=== PATIENT | male | born 1935 | race Caucasian/White ===

== ENCOUNTER 2017-07-03 07:13 | Emergency (ER) | payer MEDICARE, BC ==
[2017-07-03 07:36] VITALS: BP 167/88
[2017-07-03] MEDS ORDERED: Acetaminophen 325 MG Tab PO ONE (08:22)
[2017-07-03] MEDS ORDERED: Ketorolac 30 MG/ML SDV IM ONE (08:22)
--- NOTE | 2017-07-03 08:26 | EDM.PDOC ---
ED HPI GENERAL MEDICAL PROBLEM - General Chief Complaint: Back Pain or Injury Stated Complaint: BACK PAIN Time Seen by Provider: 07/03/17 07:41 Source of Information: Reports: Patient History Limitations: Reports: No Limitations - History of Present Illness INITIAL COMMENTS - FREE TEXT/NARRATIVE: The patient is a 81-year-old male with a chief complaint of back pain. The patient states he had a back injury several years ago and had some sort of fracture. He had a procedure done by a specialist in [facility] who injected cement , sounds like kyphoplasty. Since then the patient has had on and off back pain. He comes in today because his back pain has been quite a bit worse over the past few weeks. No new injury. No new fall. The pain is located in the low back , midline, sharp, worse with sitting and movement. He does have pain radiating down both legs. He has chronic numbness in his feet and lower legs, states there is no change in this. No new weakness. No urinary retention or other urinary symptoms. No fever or recent illness. Patient was seen at an outside clinic in [place] less than a week ago, he states x-rays showed "bad arthritis" but no additional abnormality. He was prescribed cyclobenzaprine but has not taken this. He is very hesitant to take pain medications as they tend to make him hallucinate and cause excessive confusion and drowsiness. He states he did not tolerate any of multiple narcotics that were tried after his back surgery. He has taken an occasional ibuprofen but this has not provided significant relief. Last night the pain was severe enough that he couldn't sleep. He finally tried a shot of whiskey and this helped him get some rest. Lower Back Pain Score (Numeric/FACES): 6 - Related Data Allergies Allergy/AdvReac Type Severity Reaction Status Date / Time acetaminophen [From Percocet] Allergy Confusion Verified 07/03/17 07:36 oxycodone [From Percocet] Allergy Confusion Verified 07/03/17 07:36 Home Meds: Home Meds Atenolol [Atenolol] 50 mg PO BID 06/22/16 [History] Hydrochlorothiazide [Hydrochlorothiazide] 25 mg PO DAILY 06/22/16 [History] Irbesartan 300 mg PO DAILY 06/22/16 [History] Levalbuterol Tartrate [Xopenex HFA] 1 puff INH ASDIRECTED PRN 06/22/16 [History] Rosuvastatin Calcium [Crestor] 10 mg PO DAILY 06/22/16 [History] Past Medical History Cardiovascular History: Reports: High Cholesterol, Hypertension Respiratory History: Reports: Asthma Musculoskeletal History: Reports: Back Pain, Chronic Social & Family History - Family History Family Medical History: Noncontributory - Tobacco Use Smoking Status *Q: Never Smoker Second Hand Smoke Exposure: No - Recreational Drug Use Recreational Drug Use: No ED ROS GENERAL - Review of Systems Review Of Systems: See Below Constitutional: Denies: Fever HEENT: Reports: Rhinitis Respiratory: Denies: Shortness of Breath Cardiovascular: Denies: Chest Pain Endocrine: Reports: No Symptoms GI/Abdominal: Denies: Abdominal Pain : Denies: Dysuria, Hematuria, Incontinence, Urinary Retention Musculoskeletal: Reports: Back Pain Skin: Reports: No Symptoms Neurological: Reports: Numbness, Paresthesia. Denies: Weakness ED EXAM,LOWER BACK PAIN/INJURY - Physical Exam Exam: See Below Exam Limited By: No Limitations General Appearance: Alert, WD/WN, No Apparent Distress Eye Exam: Bilateral Eye: Normal Inspection, PERRL Ears: Normal External Exam Nose: Other (mild erythema/irritation of bilat nasal mucosa with evidence of recent bleeding) Throat/Mouth: Normal Oropharynx, Normal Voice Head: Atraumatic, Normocephalic Neck: Normal Inspection, Supple, Non-Tender, Full Range of Motion Respiratory/Chest: No Respiratory Distress, Lungs Clear, Normal Breath Sounds, No Accessory Muscle Use Cardiovascular: Normal Peripheral Pulses, Regular Rate, Rhythm, No Edema, No Murmur GI/Abdominal: Soft, Non-Tender, No Distention Back Exam: Normal Inspection, Paraspinal Tenderness (low lumbar raea), Vertebral Tenderness (low lumbar area, no step-offs/deformities, skin normal, no masses/fluctuance). No: CVA Tenderness (L), CVA Tenderness (R) Extremities: Normal Inspection, No Pedal Edema Neurological: Alert, Normal Mood/Affect, Normal Dorsiflexion, Normal Plantar Flexion, Oriented x 3 Psychiatric: Normal Affect, Normal Mood Skin Exam: Warm, Dry, Intact, Normal Color, No Rash Course - Vital Signs Last Recorded V/S: Last Vital Signs Temp 36.9 C 07/03/17 07:31 Pulse 88 11/26/17 07:31 Resp 18 07/03/17 07:31 BP 167/88 H 07/03/17 07:31 Pulse Ox 100 07/03/17 07:31 - Orders/Labs/Meds Meds: Medications Discontinued Medications Generic Name Dose Route Start Last Admin Trade Name Sophia PRN Reason Stop Dose Admin Acetaminophen 650 mg 07/03/17 08:22 07/03/17 08:30 Tylenol PO 07/03/17 08:23 650 mg NOW ONE Administration Ketorolac Tromethamine 30 mg 07/03/17 08:22 07/03/17 08:30 Toradol IM 07/03/17 08:23 30 mg ONETIME ONE Administration - Re-Assessments/Exams Free Text/Narrative Re-Assessment/Exam: 07/03/17 08:50 Patient had x-rays at outside clinic less than a week ago. He was told they showed "a lot of arthritis" but nothing else. He states results were faxed to his PCP. Given no new trauma, no indication for further imaging today. Other than longstanding lower extremity paresthesias, patient has no neurological deficits. His primary concern is pain control. He is very reluctant to take medications due to history of hallucinations/severe drowsiness with any narcotics - he tried multiple medications after his back surgery years ago and tolerated none of them. He was prescribed cyclobenzaprine at outside clinic but hasn't yet tried it due to concerns about possible side effects. He's just been taking an occasional ibuprofen and resorted to a shot of whiskey during the night as he couldn't sleep due to pain. I suggested he alternate ibuprofen and acetaminophen, f/u with PCP this week for referral for possible MRI and physical therapy and further discussion of pain control. Departure - Departure Time of Disposition: 08:23 Disposition: Home, Self-Care 01 Clinical Impression: Low back pain Qualifiers: Chronicity: acute Back pain laterality: midline Sciatica presence: with sciatica Sciatica laterality: bilateral sciatica Qualified Code(s): M54.42 - Lumbago with sciatica, left side - Discharge Information Instructions: Back Pain, Adult, [id number] Referrals: Hemal Aquino MD [Primary Care Provider] - Forms: ED Department Discharge Additional Instructions: 1. Take ibuprofen (acetaminophen) + ibuprofen (motrin) or aleve as directed by the bottle instructions. OK to take both of these medications together - they work and are cleared by the body in different ways. 2. Try taking 1/2 tab of your prescribed cyclobenzaprine tonight to see if this helps your pain. 3. Follow up with Dr. Aquino as soon as possible. Discuss whether an MRI and physical therapy referrals may be helpful in further evaluating and treating your pain. 4. Apply a small amount of vaseline inside your nose twice daily to help prevent nose bleeds. 5. Return to the ED for any new concerning symptoms, such as severe pain, worsening weakness in your legs, fever, or other concerning symptoms.
== END 2017-07-03 08:40 | disposition home or self-care (01) ==
LOC: JD.ED 07:13
DX: M54.42 Lumbago with sciatica, left side (principal); E78.00 Pure hypercholesterolemia, unspecified; I10 Essential (primary) hypertension; Z88.8 Allergy status to other drugs, medicaments and biological substances
CPT/HCPCS: 96372; 99283; A9270; J1885

== ENCOUNTER 2017-07-20 13:44 | Emergency (ER) | payer MEDICARE, BC ==
--- NOTE | 2017-07-20 15:07 | EDM.PDOC ---
ED HPI GENERAL MEDICAL PROBLEM - General Chief Complaint: Cardiovascular Problem Stated Complaint: HIGH BLOOD PRESSURE Time Seen by Provider: 07/20/17 14:15 Source of Information: Reports: Patient History Limitations: Reports: No Limitations - History of Present Illness INITIAL COMMENTS - FREE TEXT/NARRATIVE: 82-year-old male presents with multiple concerns. He states that he was most concerned about his high blood pressure. He called his primary care physician and was told to come to the emergency department. States he's been taking his medications as prescribed with no recent changes. They include irbesartan 300 mg daily, atenolol 50 mg twice a day, and hydrochlorothiazide 25 mg daily. Patient has been feeling poorly recently and took his blood pressure over the last few days has had a couple of readings of systolic 220 or so. States that he 's had some minimal chest discomfort and feels minimally short of breath but that he didn't think anything of it. He has also had some intermittent lower extremity pain and swelling but states that this is also been minor and that he wasn't concerned about it. No headache or confusion or neurological complaints. He is more concerned about his low back pain, which has been very problematic for him recently. He seen multiple physicians for this. He is currently taking cyclobenzaprine and tramadol but is now out of the cyclobenzaprine. States he's had trouble sleeping and also has had some feelings of anxiety in the past couple of weeks and wonders if that is related to the medications. He did see a specialist in [facility] who is planning to refer him to a pain specialist. Meanwhile, no difficulty walking or lower extremity weakness, no urinary symptoms. lower back Pain Score (Numeric/FACES): 3 - Related Data Allergies Allergy/AdvReac Type Severity Reaction Status Date / Time acetaminophen [From Percocet] Allergy Confusion Verified 07/20/17 14:16 oxycodone [From Percocet] Allergy Confusion Verified 07/20/17 14:16 Home Meds: Home Meds Atenolol [Atenolol] 50 mg PO BID 06/22/16 [History] Hydrochlorothiazide [Hydrochlorothiazide] 25 mg PO DAILY 06/22/16 [History] Irbesartan 300 mg PO DAILY 06/22/16 [History] Levalbuterol Tartrate [Xopenex HFA] 1 puff INH ASDIRECTED PRN 06/22/16 [History] Rosuvastatin Calcium [Crestor] 10 mg PO DAILY 06/22/16 [History] Cinnamon Bark [Cinnamon] 500 mg PO DAILY 07/20/17 [History] Cyclobenzaprine [Flexeril] 10 mg PO BEDTIME 07/20/17 [History] Furosemide 20 mg PO DAILY #30 tablet 07/20/17 [Rx] Magnesium 200 mg PO DAILY 07/20/17 [History] amLODIPine [Norvasc] 5 mg PO DAILY #30 tablet 07/20/17 [Rx] traMADol HCl [Tramadol HCl] 50 mg PO Q6H PRN 07/20/17 [History] Past Medical History HEENT History: Reports: Impaired Vision Cardiovascular History: Reports: High Cholesterol, Hypertension Respiratory History: Reports: Asthma Other Respiratory History: takes xopenex inhalers very frequently Musculoskeletal History: Reports: Back Pain, Chronic Psychiatric History: Reports: Anxiety - Past Surgical History Musculoskeletal Surgical History: Reports: Other (See Below) Other Musculoskeletal Surgeries/Procedures:: currently being treated for compression fractures of the lower back Social & Family History - Family History Family Medical History: Noncontributory - Tobacco Use Smoking Status *Q: Former Smoker Used Tobacco, but Quit: No Second Hand Smoke Exposure: No - Caffeine Use Caffeine Use: Reports: Soda Other Caffeine Use: decaf coffee. states "lives on diet dew" - Recreational Drug Use Recreational Drug Use: No ED ROS GENERAL - Review of Systems Review Of Systems: See Below Constitutional: Reports: No Symptoms HEENT: Reports: No Symptoms Respiratory: Denies: Cough Cardiovascular: Reports: Dyspnea on Exertion Endocrine: Reports: No Symptoms GI/Abdominal: Denies: Abdominal Pain : Reports: No Symptoms Musculoskeletal: Reports: Back Pain Neurological: Denies: Headache Psychiatric: Reports: Anxiety ED EXAM, GENERAL - Physical Exam Exam: See Below Exam Limited By: No Limitations General Appearance: Alert, WD/WN, No Apparent Distress Eye Exam: Bilateral Eye: Normal Inspection Ears: Normal External Exam Nose: Normal Inspection Throat/Mouth: Normal Inspection, Normal Voice, No Airway Compromise Head: Atraumatic, Normocephalic Neck: Normal Inspection, Supple, Non-Tender, Full Range of Motion Respiratory/Chest: No Respiratory Distress, Lungs Clear, Normal Breath Sounds, Chest Non-Tender Cardiovascular: Other (Irregularly irregular, rate 55-65, trace bilateral lower extremity edema) GI/Abdominal: Soft, Non-Tender, No Distention. No: Rebound Neurological: Alert, Oriented, CN II-XII Intact, Normal Cognition, No Motor/ Sensory Deficits Psychiatric: Normal Affect, Normal Mood Skin Exam: Warm, Dry, Intact, Normal Color, No Rash Course - Vital Signs Last Recorded V/S: Last Vital Signs Temp 35.9 C 07/20/17 14:08 Pulse 62 07/20/17 16:45 Resp 18 07/20/17 16:45 BP 164/93 H 07/20/17 16:45 Pulse Ox 95 07/20/17 16:45 - Orders/Labs/Meds Orders: Active Orders 24 hr Category Date Time Status EKG 12 Lead [EKG Documentation Completion] [RC] STAT Care 07/20/17 15:05 Active EKG 12 Lead [EKG Documentation Completion] [RC] STAT Care 07/20/17 15:39 Active Labs: Laboratory Tests 07/20/17 07/20/17 07/20/17 Range/Units 15:23 15:23 15:23 WBC 6.50 (4.23-9.07) K/mm3 RBC 4.62 L (4.63-6.08) M/mm3 Hgb 15.2 (13.7-17.5) gm/L Hct 44.0 (40.1-51.0) % MCV 95.2 H (79.0-92.2) fl MCH 32.9 H (25.7-32.2) pg MCHC 34.5 (32.2-35.5) g/dl RDW Std Deviation 49.0 H (35.1-43.9) fL Plt Count 199 (163-337) K/mm3 MPV 8.6 L (9.4-12.3) fl Neut % (Auto) 64.2 (34.0-67.9) % Lymph % (Auto) 24.6 (21.8-53.1) % Starr % (Auto) 10.3 (5.3-12.2) % Eos % (Auto) 0.5 L (0.8-7.0) Baso % (Auto) 0.2 (0.1-1.2) % Neut # (Auto) 4.18 (1.78-5.38) K/mm3 Lymph # (Auto) 1.60 (1.32-3.57) K/mm3 Starr # (Auto) 0.67 (0.30-0.82) K/mm3 Eos # (Auto) 0.03 L (0.04-0.54) K/mm3 Baso # (Auto) 0.01 (0.01-0.08) K/mm3 Sodium 125 L (136-145) mEq/L Potassium 3.8 (3.5-5.1) mEq/L Chloride 90 L (98-107) mEq/L Carbon Dioxide 29 (21-32) mEq/L Anion Gap 9.8 (5-15) BUN 15 (7-18) mg/dL Creatinine 1.0 (0.7-1.3) mg/dL Est Cr Clr Drug Dosing 58.92 mL/min Estimated GFR (MDRD) > 60 (>60) mL/min BUN/Creatinine Ratio 15.0 (14-18) Glucose 117 H (83-115) mg/dL Calcium 8.7 (8.5-10.1) mg/dL Magnesium 1.9 (1.8-2.4) mg/dl Total Bilirubin 1.0 (0.2-1.0) mg/dL AST 40 H (15-37) U/L ALT 33 (16-63) U/L Alkaline Phosphatase 43 L (46-116) U/L Troponin I 0.022 (0.00-0.056) ng/mL NT-Pro-B Natriuret Pep 2146 H (0-450) pg/mL Total Protein 7.1 (6.4-8.2) g/dl Albumin 3.9 (3.4-5.0) g/dl Globulin 3.2 gm/dL Albumin/Globulin Ratio 1.2 (1-2) Meds: Medications Discontinued Medications Generic Name Dose Route Start Last Admin Trade Name Freq PRN Reason Stop Dose Admin Furosemide 20 mg 07/20/17 18:05 07/20/17 18:29 Lasix IVPUSH 07/20/17 18:06 20 mg ONETIME ONE Administration Sodium Chloride 100 mls @ 65 mls/hr 07/20/17 16:45 07/20/17 17:40 Normal Saline IV 65 mls/hr ASDIRECTED FANNIE Administration Iopamidol 100 ml 07/20/17 16:37 07/20/17 17:39 [id number] (76%) IVPUSH 07/20/17 16:38 100 ml ONETIME ONE Administration Iopamidol 50 ml 07/20/17 16:37 07/20/17 17:40 [id number] (76%) IVPUSH 07/20/17 16:38 20 ml ONETIME ONE Administration Sodium Chloride 10 ml 07/20/17 16:37 07/20/17 17:40 Saline Flush FLUSH 10 ml ONETIME PRN Administration IV FLUSH - Re-Assessments/Exams Free Text/Narrative Re-Assessment/Exam: 07/20/17 16:52 Due to patient's reported BP's as high as systolics of 220, labs/EKG ordered to eval for hypertensive urgency even though his BP's are elevated but much less concerning here. EKG shows narrow complex irregularly irregular rhythm with a rate of around 58. Subtle lateral ST depression, no ST elevation or additional significant abnormality. Patient does not have a prior history of atrial fibrillation. Discussed this at length with him. I don't believe that is related to his current concern about his high blood pressure. He has had occasional palpitations and a feeling of "anxiety" in his chest, which may or may not be related. He has no hx of CHF, CAD, and hasn't had any evaluation for such conditions that he recalls. Rate was well controlled throughout his prolonged ED stay with HR mostly in 60's. He is already on atenolol 50mg bid. He his trace bilat LE edema and mildly enlarged cardiac silhouette on CXR with possible L pleural effusion - will need outpt echo and further eval. CT chest neg for PE or other pathology. Sodiuim 125. No known hx of hyponatremia. Appears euvolemic or slightly volume overloaded on exam. Has been on HCTZ for some time. Suspect this medication may be culprit. Will dc HCTZ, replace with furosemide at a low dose , and have patient recheck sodium either in clinic or here this week Tuesday. Meanwhile his blood pressure is elevated but not in range of hypertensive urgency, with systolics of 150-180 while he's been here. He is on maximum doses of all of his current medications. We will add amolidpine 5mg daily and encourage pt to keep a twice daily BP log. Troponin is negative. BNP is elevated. No recent prior available for comparison. Normal kidney function. 07/21/17 07:07 07/21/17 07:14 Departure - Departure Time of Disposition: 18:26 Disposition: Home, Self-Care 01 Clinical Impression: Hyponatremia Hypertension Qualifiers: Hypertension type: unspecified Qualified Code(s): I10 - Essential (primary) hypertension Atrial fibrillation Qualifiers: Atrial fibrillation type: unspecified Qualified Code(s): I48.91 - Unspecified atrial fibrillation Prescriptions: amLODIPine [Norvasc] 5 mg PO DAILY #30 tablet Furosemide 20 mg PO DAILY #30 tablet Instructions: Hyponatremia, Hypertension Referrals: Hemal Aquino MD [Primary Care Provider] - Forms: ED Department Discharge Additional Instructions: MEDICATION CHANGES 1. Stop hydrochlorothiazide as your sodium level is too low 2. Start furosemide as prescribed. This will reduce your leg swelling and should also help your blood pressure control. 3. Also start amlodipine as prescribed for blood pressure 4. Continue all of your other medications as prescribed FOLLOW-UP 1. Your sodium today is 125, which is too low. I am hoping that the above medication changes will help. 2. Your sodium needs to be rechecked in 2 days (this week Tuesday). Call your primary doctor's office to see if they can recheck your sodium there. If you are not able to get repeat lab work done there, return to the Emergency Department for a recheck. 3. Keep a blood pressure log. Check your blood pressure twice daily and record the numbers. Discuss with Dr. Aquino at your followup appointment. 4. Your electrocardiogram today shows atrial fibrillation, which appears to be a new problem for you. This will also need to be discussed with Dr. Aquino, who may want to refer you for further testing. RETURN PRECAUTIONS: Please return to the Emergency Department if you have shortness of breath, chest pain, dizziness, weakness, confusion, or any other concerning symptoms. - My Orders Last 24 Hours: My Active Orders 07/20/17 15:05 EKG 12 Lead [EKG Documentation Completion] [RC] STAT 07/20/17 15:39 EKG 12 Lead [EKG Documentation Completion] [RC] STAT - Assessment/Plan Last 24 Hours: My Active Orders 07/20/17 15:05 EKG 12 Lead [EKG Documentation Completion] [RC] STAT 07/20/17 15:39 EKG 12 Lead [EKG Documentation Completion] [RC] STAT
[2017-07-20] MEDS ORDERED: Iopamidol 755 Mg/ML 100 ML Bottle IVPUSH ONE (16:37)
[2017-07-20] MEDS ORDERED: Iopamidol 755 MG/ML 50 ML Bottle IVPUSH ONE (16:37)
[2017-07-20] MEDS ORDERED: Sodium Chloride 0.9% 10 ML Syringe FLUSH PRN (16:37)
[2017-07-20] MEDS ORDERED: Sodium Chloride 0.9% 100 ML IV SCH (16:45)
--- NOTE | 2017-07-20 17:56 | CT ---
CT chest Technique: Multiple axial sections were obtained from above the lung apices inferiorly through the lung bases. Intravenous contrast was utilized. Study has been performed as a pulmonary angiogram protocol. Findings: Pulmonary arteries are well-opacified. No filling defects are seen to indicate pulmonary embolism. Small portion of the visualized upper abdominal structures appear within normal limits. No pericardial thickening is seen. Coronary artery calcification is noted. Mediastinum and hilar regions show no adenopathy or mass. Slight atelectasis or scarring is seen within the lingula. No acute pulmonary densities are believed to be present. No pleural effusions are seen. Bone window settings were reviewed showing scattered degenerative endplate spurring within the spine. Impression: 1. No findings of pulmonary embolism. 2. Mild atelectasis or scarring within the lingula. 3. Nothing acute is appreciated with other incidental findings as noted above. Diagnostic code #2
[2017-07-20] MEDS ORDERED: Furosemide 20 MG/2 ML VIAL IVPUSH ONE (18:05)
[2017-07-20 19:09] VITALS: BP 164/93
--- NOTE | 2017-07-21 06:49 | CR ---
Chest: Portable view of the chest was obtained. Comparison: No prior chest x-ray, prior chest CT of 04/07/11 is available. Heart size appears within normal limits for portable technique. Slight tortuosity of the thoracic aorta is seen. Lungs are clear with no acute parenchymal densities. Bony structures are grossly intact. Impression: 1. Nothing acute is identified on portable chest x-ray. Diagnostic code #1
== END 2017-07-20 18:40 | disposition home or self-care (01) ==
LOC: JD.ED 13:44
DX: I48.91 Unspecified atrial fibrillation (principal); I10 Essential (primary) hypertension; E87.1 Hypo-osmolality and hyponatremia; Z88.6 Allergy status to analgesic agent; Z88.5 Allergy status to narcotic agent; Z79.899 Other long term (current) drug therapy; Z87.891 Personal history of nicotine dependence
CPT/HCPCS: 36415; 71010; 71275; 80053; 83735; 83880; 84484; 85025; 93005; 96374; 99284; A9270; J7030; J7050; Q9967; 93010

== ENCOUNTER 2017-07-24 08:12 | Inpatient (IN) | payer MEDICARE, BC ==
--- NOTE | 2017-07-24 08:43 | EDM.PDOC ---
ED HPI GENERAL MEDICAL PROBLEM - General Chief Complaint: Neuro Symptoms/Deficits Stated Complaint: [facility] Time Seen by Provider: 07/24/17 08:19 Source of Information: Reports: Family (), RN History Limitations: Reports: Altered Mental Status (Patient is confused) - History of Present Illness INITIAL COMMENTS - FREE TEXT/NARRATIVE: The patient is brought to the emergency department per EMS. According to the patient's , the patient has had confusion on and off for the past 4-5 days, but was much more confused than usual at 06:30 this morning. The patient's states that the patient fell off a roof around 2010, causing what sounds to be compression fractures. He underwent a vertebral plasty, but then fell again in July 2016, suffering a second compression fracture (she believes T12). He did not undergo a second vertebroplasty. He suffers from chronic back pain, but , she states, he does not tolerate pain medications, therefore he takes only Tylenol and ibuprofen. Medical records indicate that the patient was seen in this ED this past 07/20/2017, at which time he was found to be in atrial fibrillation. Was found to be depressed at 125. The patient's HIDA chlorothiazide was switched to Lasix, and the patient was also started on Norvasc 5 mg daily. The patient's states that the patient has not been on any other medications, including cold medications or antihistamines. The patient's , however, does state that he ordinarily takes tramadol 1 tablet QID, but that he took more yesterday, as she found the patient in the bathroom taking this medication. She does not know how many he took. No recent illnesses. The patient's PCP is Dr.Dr. Aquino. - Related Data Allergies Allergy/AdvReac Type Severity Reaction Status Date / Time acetaminophen [From Percocet] Allergy Confusion Verified 07/24/17 08:39 oxycodone [From Percocet] Allergy Confusion Verified 07/24/17 08:39 Home Meds: Home Meds Atenolol [Atenolol] 50 mg PO BID 06/22/16 [History] Irbesartan 300 mg PO DAILY 06/22/16 [History] Rosuvastatin Calcium [Crestor] 10 mg PO DAILY 06/22/16 [History] Cinnamon Bark [Cinnamon] 500 mg PO DAILY 07/20/17 [History] Furosemide 20 mg PO DAILY #30 tablet 07/20/17 [Rx] amLODIPine [Norvasc] 5 mg PO DAILY #30 tablet 07/20/17 [Rx] Past Medical History HEENT History: Reports: Impaired Vision Cardiovascular History: Reports: Afib, High Cholesterol, Hypertension Respiratory History: Reports: Asthma Musculoskeletal History: Reports: Back Pain, Chronic, Fracture (vertebral compression), Osteoporosis Psychiatric History: Reports: Anxiety Endocrine/Metabolic History: Reports: Obesity/BMI 30+ - Past Surgical History Musculoskeletal Surgical History: Reports: Other (See Below) (Vertebroplasty) Social & Family History - Family History Family Medical History: Noncontributory - Tobacco Use Smoking Status *Q: Former Smoker Used Tobacco, but Quit: No Second Hand Smoke Exposure: No - Caffeine Use Caffeine Use: Reports: Soda Other Caffeine Use: decaf coffee. states "lives on diet dew" - Recreational Drug Use Recreational Drug Use: No ED ROS GENERAL - Review of Systems Review Of Systems: See Below Constitutional: Reports: No Symptoms HEENT: Reports: No Symptoms Respiratory: Reports: No Symptoms Cardiovascular: Reports: No Symptoms Endocrine: Reports: No Symptoms GI/Abdominal: Reports: No Symptoms : Reports: No Symptoms Musculoskeletal: Reports: Back Pain (Chronic, as per the HPI) Skin: Reports: No Symptoms Neurological: Reports: Confusion (as per the HPI) Psychiatric: Reports: No Symptoms Hematologic/Lymphatic: Reports: No Symptoms Immunologic: Reports: No Symptoms ED EXAM, GENERAL - Physical Exam Exam: See Below Exam Limited By: Altered Mental Status (The patient does not follow commands) General Appearance: Alert, WD/WN, No Apparent Distress Eye Exam: Bilateral Eye: Normal Inspection Ears: Normal External Exam, Hearing Grossly Normal Nose: Normal Inspection, No Blood Throat/Mouth: Normal Inspection, Normal Lips, Normal Voice, No Airway Compromise Head: Atraumatic, Normocephalic Neck: Normal Inspection, Full Range of Motion Respiratory/Chest: No Respiratory Distress, Lungs Clear, Normal Breath Sounds, No Accessory Muscle Use Cardiovascular: Normal Peripheral Pulses, No Gallop, No JVD, No Murmur, No Rub, Irregularly Irregular (normal rate) Peripheral Pulses: 3+: Radial (L), Radial (R) GI/Abdominal: Normal Bowel Sounds, Soft, Non-Tender, No Organomegaly, No Distention, No Abnormal Bruit, No Mass, Other (Obese) (Male) Exam: Deferred Rectal (Males) Exam: Deferred Extremities: Normal Inspection, Normal Range of Motion, Normal Capillary Refill Neurological: Alert, Confused, Other (The patient does not follow any commands due to confusion. For example, when asked to show me his teeth with a big smile , he states "I'm fine", and does not show me his teeth. No obvious focal neurologic deficits, such as facial droop, and the patient moves all 4 extremities spontaneously.) Psychiatric: Other (Unable to assess) Skin Exam: Warm, Dry, Intact, Normal Color, No Rash Course - Vital Signs Last Recorded V/S: Last Vital Signs Temp 35.9 C 07/24/17 08:18 Pulse 78 07/24/17 08:18 Resp 16 07/24/17 08:18 BP 204/128 H 07/24/17 08:18 Pulse Ox 98 07/24/17 08:18 - Orders/Labs/Meds Orders: Active Orders 24 hr Category Date Time Status EKG Documentation Completion [RC] STAT Care 07/24/17 08:27 Active Chest 1V Frontal [CR] Stat Exams 07/24/17 08:26 Taken Labs: Laboratory Tests 07/24/17 07/24/17 07/24/17 Range/Units 08:23 08:32 08:50 WBC 5.62 (4.23-9.07) K/mm3 RBC 4.74 (4.63-6.08) M/mm3 Hgb 15.8 (13.7-17.5) gm/L Hct 45.4 (40.1-51.0) % MCV 95.8 H (79.0-92.2) fl MCH 33.3 H (25.7-32.2) pg MCHC 34.8 (32.2-35.5) g/dl RDW Std Deviation 51.2 H (35.1-43.9) fL Plt Count 197 (163-337) K/mm3 MPV 8.5 L (9.4-12.3) fl Neutrophils % (Manual) 67 H (40-60) % Band Neutrophils % 0 (0-10) % Lymphocytes % (Manual) 24 (20-40) % Atypical Lymphs % 0 % Monocytes % (Manual) 8 (2-10) % Eosinophils % (Manual) 1 (0.8-7.0) % Basophils % (Manual) 0 L (0.2-1.2) Platelet Estimate Adequate RBC Morph Comment Normal PT (8.0-13.0) SECONDS INR APTT (22-36) SECONDS Sodium (136-145) mEq/L Potassium (3.5-5.1) mEq/L Chloride (98-107) mEq/L Carbon Dioxide (21-32) mEq/L Anion Gap (5-15) BUN (7-18) mg/dL Creatinine (0.7-1.3) mg/dL Est Cr Clr Drug Dosing mL/min Estimated GFR (MDRD) (>60) mL/min BUN/Creatinine Ratio (14-18) Glucose (83-115) mg/dL POC Glucose 136 H (83-110) mg/dL Calcium (8.5-10.1) mg/dL Magnesium (1.8-2.4) mg/dl Total Bilirubin (0.2-1.0) mg/dL AST (15-37) U/L ALT (16-63) U/L Alkaline Phosphatase (46-116) U/L Troponin I (0.00-0.056) ng/mL Total Protein (6.4-8.2) g/dl Albumin (3.4-5.0) g/dl Globulin gm/dL Albumin/Globulin Ratio (1-2) TSH 3rd Generation (0.358-3.74) uIU/mL Urine Color Yellow (Yellow) Urine Appearance Clear (Clear) Urine pH 8.5 H (5.0-8.0) Ur Specific [place] 1.020 (1.005-1.030) Urine Protein 1+ H (Negative) Urine Glucose (UA) Negative (Negative) Urine Ketones Negative (Negative) Urine Occult Blood Negative (Negative) Urine Nitrite Negative (Negative) Urine Bilirubin Negative (Negative) Urine Urobilinogen 1.0 (0.2-1.0) Ur Leukocyte Esterase Negative (Negative) Urine RBC 0-5 (0-5) /hpf Urine WBC 0-5 (0-5) /hpf Ur Epithelial Cells 0-5 (0-5) /hpf Amorphous Sediment Few H (NOT SEEN) /hpf Urine Bacteria Few (FEW) /hpf Urine Mucus Not seen (FEW) /hpf 07/24/17 07/24/17 Range/Units 08:50 08:50 WBC (4.23-9.07) K/mm3 RBC (4.63-6.08) M/mm3 Hgb (13.7-17.5) gm/L Hct (40.1-51.0) % MCV (79.0-92.2) fl MCH (25.7-32.2) pg MCHC (32.2-35.5) g/dl RDW Std Deviation (35.1-43.9) fL Plt Count (163-337) K/mm3 MPV (9.4-12.3) fl Neutrophils % (Manual) (40-60) % Band Neutrophils % (0-10) % Lymphocytes % (Manual) (20-40) % Atypical Lymphs % % Monocytes % (Manual) (2-10) % Eosinophils % (Manual) (0.8-7.0) % Basophils % (Manual) (0.2-1.2) Platelet Estimate RBC Morph Comment PT 11.4 (8.0-13.0) SECONDS INR 1.04 APTT 27 (22-36) SECONDS Sodium 130 L (136-145) mEq/L Potassium 3.9 (3.5-5.1) mEq/L Chloride 94 L (98-107) mEq/L Carbon Dioxide 28 (21-32) mEq/L Anion Gap 11.9 (5-15) BUN 15 (7-18) mg/dL Creatinine 0.8 (0.7-1.3) mg/dL Est Cr Clr Drug Dosing 73.65 mL/min Estimated GFR (MDRD) > 60 (>60) mL/min BUN/Creatinine Ratio 18.8 H (14-18) Glucose 123 H (83-115) mg/dL POC Glucose (83-110) mg/dL Calcium 8.5 (8.5-10.1) mg/dL Magnesium 1.9 (1.8-2.4) mg/dl Total Bilirubin 1.0 (0.2-1.0) mg/dL AST 23 (15-37) U/L ALT 31 (16-63) U/L Alkaline Phosphatase 38 L (46-116) U/L Troponin I 0.017 (0.00-0.056) ng/mL Total Protein 7.2 (6.4-8.2) g/dl Albumin 3.9 (3.4-5.0) g/dl Globulin 3.3 gm/dL Albumin/Globulin Ratio 1.2 (1-2) TSH 3rd Generation 2.225 (0.358-3.74) uIU/mL Urine Color (Yellow) Urine Appearance (Clear) Urine pH (5.0-8.0) Ur Specific [place] (1.005-1.030) Urine Protein (Negative) Urine Glucose (UA) (Negative) Urine Ketones (Negative) Urine Occult Blood (Negative) Urine Nitrite (Negative) Urine Bilirubin (Negative) Urine Urobilinogen (0.2-1.0) Ur Leukocyte Esterase (Negative) Urine RBC (0-5) /hpf Urine WBC (0-5) /hpf Ur Epithelial Cells (0-5) /hpf Amorphous Sediment (NOT SEEN) /hpf Urine Bacteria (FEW) /hpf Urine Mucus (FEW) /hpf - Re-Assessments/Exams Free Text/Narrative Re-Assessment/Exam: 07/24/17 09:05 Portable chest radiograph appears to be grossly normal. Cardiac silhouette is within normal limits. No pulmonary vascular congestion. No pleural effusions. No focal infiltrate. No pneumothorax. Formal read per the Radiologist pending. 07/24/17 09:41 CT of the head without contrast is read by Dr. Boogie as: 1. Senescent change as described above. No acute abnormality is identified on noncontrast head CT exam. 07/24/17 11:01 Test results discussed with the patient and his . The patient's mental status has improved somewhat, so that a conversation can be held, however, he is still disoriented to place, year, and day. The cause of the patient's confusion is most likely due to excessive tramadol yesterday, as no other obvious causes have been found. I suspect, however, that the patient has underlying dementia. The patient does not appear to have pneumonia or a UTI. His sodium is mildly depressed at 130, but no other significant electrolyte abnormalities. His troponin is not elevated, and while the patient is in atrial fibrillation, there are no acute changes. I recommended admission to the hospital, withholding the tramadol, and seeing if the patient's mental status improves. The patient and his are agreeable. Case then discussed with Dr. Rivera at 10:57. He accepts the patient to be admitted to telemetry. Departure - Departure Time of Disposition: 11:04 Disposition: Admitted As Inpatient 68 Condition: Fair Clinical Impression: Confusion - Discharge Information - My Orders Last 24 Hours: My Active Orders 07/24/17 08:26 Chest 1V Frontal [CR] Stat 07/24/17 08:27 EKG Documentation Completion [RC] STAT - Assessment/Plan Last 24 Hours: My Active Orders 07/24/17 08:26 Chest 1V Frontal [CR] Stat 07/24/17 08:27 EKG Documentation Completion [RC] STAT
--- NOTE | 2017-07-24 09:29 | CT ---
Head CT Technique: Multiple axial sections through the brain were obtained. intravenous contrast was not utilized. Comparison: No prior intracranial imaging is available. Findings: Ventricles along with basal cisterns and sulci over the convexities are mildly prominent. Diminished density is noted within portions of the periventricular and subcortical white matter having the appearance of small vessel ischemic demyelination change. 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 Old cortical infarct is seen within the posterior right parietal region. No other abnormal parenchymal densities are seen. No evidence of intracranial hemorrhage. No midline shift or mass effect is seen. Bone window settings were reviewed which shows no acute findings within the paranasal sinuses. No acute calvarial abnormality is appreciated. Impression: 1. Senescent change as described above. No acute abnormality is identified on noncontrast head CT exam. Diagnostic code #2
--- NOTE | 2017-07-24 12:15 | PCM.HP ---
H&P History of Present Illness - General Date of Service: 07/24/17 Admit Problem/Dx: Admission Diagnosis/Problem Admission Diagnosis/Problem Confusion Source of Information: Patient, Family, Old Records, Provider, RN Notes Reviewed History Limitations: Reports: Altered Mental Status - History of Present Illness Initial Comments - Free Text/Narative: This is an 82 yo elderly white male with past medical hx/o impaired hearing, hypertension, hyperlipidemia, atrial fibrillation, asthma, chronic back pain, and anxiety, and Obesity who comes in with complaints of intermittent altered mental status for 4-5 days now. Patient has been having chronic back pain that is not well controlled with narcotic pain pill. He has also tried tylenol and NSAIDs but w/o much relief. He is currently taking tramadol to take no more than 4x a day but thinks he took more than what was prescribed to him. His initial workup in emergency department shows a CBC remarkable for MCV of 95.8, MCH of 33.3, RDW of 51.2, MPV of 8.5, and neutrophils of 67%. His chemistry is remarkable for sodium of 130, chloride of 94, glucose of 123, and alkaline phosphatase of 38. His UA is negative for UTI but positive for +1 protein. His UDS is negative. His head CT scan report reads no acute abnormalities identified. Chest x-ray shows no obvious infiltrate. Patient is being admitted for AMS 2/2 inadvertent ingestion of excessive tramadol. He is DNR/DNI - Related Data Allergies/Adverse Reactions: Allergies Allergy/AdvReac Type Severity Reaction Status Date / Time acetaminophen [From Percocet] AdvReac Confusion Verified 07/25/17 07:55 oxycodone [From Percocet] AdvReac Confusion Verified 07/25/17 07:55 Home Medications: Home Meds Atenolol [Atenolol] 50 mg PO BID 06/22/16 [History] Irbesartan 300 mg PO DAILY 06/22/16 [History] Rosuvastatin Calcium [Crestor] 10 mg PO DAILY 06/22/16 [History] Cinnamon Bark [Cinnamon] 500 mg PO DAILY 07/20/17 [History] Furosemide 20 mg PO DAILY #30 tablet 07/20/17 [Rx] Albuterol Sulfate [Proair Respiclick] 1 puff INH QID 07/24/17 [History] Magnesium Oxide [Magnesium] 500 mg PO DAILY 07/24/17 [History] traMADol [Ultram] 50 mg PO TID PRN 07/24/17 [History] Lidocaine 5% [Lidoderm 5%] 700 mg TOP Q24H #30 patch 07/25/17 [Rx] Past Medical History HEENT History: Reports: Impaired Vision Cardiovascular History: Reports: Afib, High Cholesterol, Hypertension Respiratory History: Reports: Asthma Other Respiratory History: takes xopenex inhalers very frequently Musculoskeletal History: Reports: Back Pain, Chronic, Fracture (vertebral compression), Osteoporosis Psychiatric History: Reports: Anxiety Endocrine/Metabolic History: Reports: Obesity/BMI 30+ - Past Surgical History Musculoskeletal Surgical History: Reports: Other (See Below) (Vertebroplasty) Social & Family History - Family History Family Medical History: Noncontributory - Tobacco Use Smoking Status *Q: Former Smoker Used Tobacco, but Quit: No Month Tobacco Last Used: 1969 Second Hand Smoke Exposure: No - Caffeine Use Caffeine Use: Reports: Soda Other Caffeine Use: decaf coffee. states "lives on diet dew" - Recreational Drug Use Recreational Drug Use: No H&P Review of Systems - Review of Systems: Review Of Systems: See Below General: Reports: Weakness. Denies: Fever, Chills, Fatigue HEENT: Reports: No Symptoms Pulmonary: Denies: Shortness of Breath, Wheezing, Cough Cardiovascular: Denies: Chest Pain, Palpitations, Dyspnea on Exertion, Lightheadedness Gastrointestinal: Denies: Abdominal Pain, Nausea, Vomiting Genitourinary: Reports: No Symptoms Musculoskeletal: Reports: Back Pain Skin: Denies: Cyanosis, Mottled, Pallor, Diaphoresis, Bruising, Rash, Erythema Psychiatric: Reports: Confusion. Denies: Depression, Anxiety Neurological: Denies: Confusion, Pre-Existing Deficit, Difficulty Walking, Weakness, Gait Disturbance Hematologic/Lymphatic: Reports: No Symptoms Immunologic: Reports: No Symptoms Exam - Exam Exam: See Below - Vital Signs Vital Signs: Last Vital Signs Temp 35.9 C 07/24/17 08:18 Pulse 78 07/24/17 08:18 Resp 16 07/24/17 08:18 BP 204/128 H 07/24/17 08:18 Pulse Ox 98 07/24/17 08:18 Weight: 120.202 kg - Exam General: Alert, Other. No: Cooperative HEENT: Conjunctiva Clear, EACs Clear, Hearing Intact, Mucosa Moist & [place], Nares Patent, Normal Nasal Septum, Posterior Pharynx Clear, Pupils Equal, Pupils Reactive, TMs Clear, Other (right eye inward). No: EOMI Neck: Supple, Trachea Midline, Other (short and thick). No: JVD Lungs: Normal Respiratory Effort, Decreased Breath Sounds Cardiovascular: Irregular Rhythm GI/Abdominal Exam: Normal Bowel Sounds, Soft, Non-Tender, No Organomegaly, No Distention, No Abnormal Bruit, No Mass, Pelvis Stable, Other (Obese) (Male) Exam: Deferred Rectal (Males) Exam: Deferred Back Exam: Normal Inspection, Decreased Range of Motion Extremities: Normal Inspection, Normal Range of Motion, Non-Tender, No Pedal Edema, Normal Capillary Refill Peripheral Pulses: 2+: Dorsalis Pedis (L), Dorsalis Pedis (R) Skin: Warm, Dry, Intact Neuro Extensive - Mental Status: Alert Neuro Extensive - Motor, Sensory, Reflexes: CN II-XII Intact (limited but grossly intact) Psychiatric: Alert, Normal Mood. No: Normal Affect Physical Exam Comments:: He is somewhat confused - Patient Data Result Diagrams: 07/25/17 07:15 07/25/17 07:15 EKG INTERPRETATION EKG Date: 07/24/17 Time: 08:27 Rhythm: A-Fib Rate (Beats/Min): 68 *Q Meaningful Use (ADM) - VTE *Q VTE Criteria *Q: - Stroke *Q Stroke Criteria *Q: - AMI *Q AMI Criteria *Q: Problem List Initiated/Reviewed/Updated: Yes Orders Last 24hrs: Active Orders 24 hr Category Date Time Status Admission Status [Patient Status] [ADT] Routine ADT 07/24/17 11:50 Active Assessment/Plan Comment:: Assessment/Plan: Acute: AMS - 2/2 Toxic/Metabolic Encephalopathy - believe he took excessive Tramadol due to chronic back pain - Supportive Care Back Pain - Acute on chronic - Intolerant to narcotics - He is currently on tramadol QID - Will add lidocaine patch - Referral to see a pain specialist Atrial Fibrillation - Recent EKG confirms irregular rhythm - His CHA2D2 VASc score is 3 - He is not on anti-coags - Offered DOACs or Warfarin but REFUSED it; he wants to wait until he sees his PCP - is aware about her 's decision Chronic: Impaired Hearing HLD HTN BPH Hypothyroidism Obesity with BMI of 39.1 Plan: Admit to the floor Routine AM Labs Dietary Consult for weight management Aspiration precaution Hold any narcotics for now PT/OT consult DVT/Stroke PPx: SCDs, again he refused anticoags SW/CM for d/c planning Code status: DNR/DNI Possible d/c in AM
[2017-07-24] MEDS ORDERED: Polyethylene Glycol 3350 Powder 17 GM Packet PO PRN (12:23)
[2017-07-24] MEDS ORDERED: Docusate Sodium 100 MG Cap PO PRN (12:23)
[2017-07-24] MEDS ORDERED: oxyCODONE 5 MG Tab PO PRN (12:23)
[2017-07-24] MEDS ORDERED: Bisacodyl 5 MG Tab PO PRN (12:23)
[2017-07-24] MEDS ORDERED: Temazepam 7.5 MG Cap PO PRN (12:23)
[2017-07-24] MEDS ORDERED: HYDROmorphone 1 MG/ML Syringe IVPUSH PRN (12:23)
[2017-07-24] MEDS ORDERED: LORazepam 2 MG/ML MDV IV PRN (12:23)
[2017-07-24] MEDS ORDERED: Promethazine 12.5 MG in Sodium Chloride 0.9% 50 ML IV PRN (12:23)
[2017-07-24] MEDS ORDERED: Albuterol/Ipratropium 3.0-0.5 MG/3 ML Neb Soln NEB PRN (12:23)
[2017-07-24] MEDS ORDERED: Ondansetron 4 MG/2 ML SDV IV PRN (12:23)
[2017-07-24] MEDS ORDERED: Ibuprofen 600 MG Tab PO PRN (12:23)
[2017-07-24] MEDS ORDERED: traMADol 50 MG Tab PO PRN (12:40)
[2017-07-24] MEDS ORDERED: Lidocaine 5% 700 MG Patch TOP SCH (13:00)
[2017-07-24] MEDS: Albuterol 6.7 GM Inhaler INH SCH ×3 (16:21→20:35)
[2017-07-24] MEDS: Atenolol 50 MG Tab PO SCH (20:41)
--- NOTE | 2017-07-25 08:33 | CR ---
Chest: Portable view of the chest is obtained. Comparison: Prior chest x-ray of 07/20/17. Mild tortuosity of the thoracic aorta is seen. Slight nodularity is seen off the left cardiac apex believed to represent scarring. Lungs otherwise are clear. Heart size appears within normal limits for portable technique. Bony structures are grossly intact. Impression: 1. Findings which are felt to be incidental within the left lung base. 2. Nothing acute is suspected on portable chest x-ray. Diagnostic code #3
[2017-07-25] MEDS ORDERED: Furosemide 20 MG Tab PO SCH (09:00)
[2017-07-25] MEDS ORDERED: Losartan 100 MG Tab PO SCH (09:00)
[2017-07-25] MEDS ORDERED: Lidocaine 5% 700 MG Patch TOP SCH (09:00)
[2017-07-25] MEDS ORDERED: Rosuvastatin 10 MG Tab PO SCH (09:00)
[2017-07-25] MEDS ORDERED: Magnesium Oxide 400 MG Tab PO SCH (09:00)
[2017-07-25] MEDS: Atenolol 50 MG Tab PO SCH (09:24)
[2017-07-25] MEDS: Albuterol 6.7 GM Inhaler INH SCH ×2 (09:32→13:04)
--- NOTE | 2017-07-25 15:10 | PCM.DCSUM1 ---
Discharge Summary - Hospital Course Brief History: This is an 82 yo elderly white male with past medical hx/o impaired hearing, hypertension, hyperlipidemia, atrial fibrillation, asthma, chronic back pain, and anxiety, and Obesity who comes in with complaints of intermittent altered mental status for 4-5 days and was admitted for AMS. - Discharge Data Discharge Date: 07/25/17 Discharge Disposition: Home, Self-Care 01 Condition: Good - Discharge Diagnosis/Problem(s) (1) Confusion SNOMED Code(s): 220496821 ICD Code: R41.0 - DISORIENTATION, UNSPECIFIED Status: Acute (2) Atrial fibrillation SNOMED Code(s): 19195715 ICD Code: I48.91 - UNSPECIFIED ATRIAL FIBRILLATION Status: Acute Qualifiers: Atrial fibrillation type: unspecified Qualified Code(s): I48.91 - Unspecified atrial fibrillation (3) Low back pain SNOMED Code(s): 662584308 ICD Code: M54.5 - LOW BACK PAIN Status: Acute Qualifiers: Chronicity: acute Back pain laterality: midline Sciatica presence: with sciatica Sciatica laterality: bilateral sciatica Qualified Code(s): M54.42 - Lumbago with sciatica, left side; M54.41 - Lumbago with sciatica, right side; M54.41 - Lumbago with sciatica, right side (4) Memory impairment SNOMED Code(s): 992409742 ICD Code: R41.3 - OTHER AMNESIA Status: Acute - Patient Summary/Data Operative Procedure(s) Performed: None Complications: None Consults: Consultations 07/24/17 12:23 Consult to Case Management [CONS] Routine Consult to Home Care Rn [CONS] Routine Consult to Pigskin Trimmer [CONS] Routine OT Evaluation and Treatment [CONS] Routine PT Evaluation and Treatment [CONS] Routine 07/25/17 10:42 [employer] Evaluation and Treatment [CONS] Routine Labs Pending at D/C: None Recommended Follow-up Testing/Procedures: None Planned Operative Procedure(s) after DC: None Hospital Course: Patient was primarily admitted for medical management of AMS which we felt was due to ingestion of excessive Tramadol. Patient carried a hx/o chronic back that was poorly controlled. He was intolerant to narcotic but does well with tramadol. Unfortunately, according to his he had been taking more what was prescribed to him. His basic diagnostic work up to include head CT scan showed no acute abnormal findings and his hospital course was uncomplicated. The rest of his chronic medical illness remained stable during this admission. Patient was advised to get with his PCP to discuss anticoagulation for his stroke prophylaxis. He was further advised not to drive and make sure not to drink alcohol while on Tramadol. His PCP was called and updated about d/c care plan on the day of his d/c. Dr. Aquino will see him in about a week for follow up. - Patient Instructions Diet: Heart Healthy Diet, Usual Diet as Tolerated, Diabetic Diet, Weight Loss Diet Activity: As Tolerated Driving: Do Not Drive Showering/Bathing: May Shower Notify Provider of: Fever, Increased Pain, Nausea and/or Vomiting Other/Special Instructions: - Please take all medications as directed. - Resume routine home activities. - Be very aware of the synergistic effects of tramadol and alcohol. - Follow up or call your PCP after discharge for any questions or concerns - Discharge Plan Prescriptions/Med Rec: Lidocaine 5% [Lidoderm 5%] 700 mg TOP Q24H #30 patch Home Medications: Home Meds Atenolol [Atenolol] 50 mg PO BID 06/22/16 [History] Irbesartan 300 mg PO DAILY 06/22/16 [History] Rosuvastatin Calcium [Crestor] 10 mg PO DAILY 06/22/16 [History] Cinnamon Bark [Cinnamon] 500 mg PO DAILY 07/20/17 [History] Furosemide 20 mg PO DAILY #30 tablet 07/20/17 [Rx] Albuterol Sulfate [Proair Respiclick] 1 puff INH QID 07/24/17 [History] Magnesium Oxide [Magnesium] 500 mg PO DAILY 07/24/17 [History] traMADol [Ultram] 50 mg PO TID PRN 07/24/17 [History] Lidocaine 5% [Lidoderm 5%] 700 mg TOP Q24H #30 patch 07/25/17 [Rx] Patient Handouts: Confusion, Dementia Referrals: Hemal Aquino MD [Primary Care Provider] - 08/02/17 10:00 am (Please follow- up with your primary care provider, Dr. Aquino, on TuesdayAugust 02 at 1000am. ) - Discharge Summary/Plan Comment DC Time >30 min.: Yes (45 mins) Discharge Summary/Plan Comment: Discharge to Home - General Info Date of Service: 07/25/17 Admission Dx/Problem (Free Text: Admission Diagnosis/Problem Admission Diagnosis/Problem Confusion Subjective Update: Follow Up Functional Status: Reports: Pain Controlled, Tolerating Diet, Ambulating, Urinating. Denies: New Symptoms - Review of Systems General: Denies: Fever, Weakness, Fatigue, Malaise, Chills HEENT: Reports: No Symptoms Pulmonary: Denies: Hemoptysis Cardiovascular: Denies: Chest Pain, Palpitations, Dyspnea on Exertion, Lightheadedness Gastrointestinal: Denies: Abdominal Pain, Nausea, Vomiting Genitourinary: Reports: No Symptoms Musculoskeletal: Reports: Back Pain Skin: Denies: Cyanosis, Mottled, Pallor, Diaphoresis, Bruising, Pruritis Neurological: Denies: Confusion, Difficulty Walking, Weakness, Gait Disturbance Psychiatric: Denies: Depression, Anxiety, Agitation, Hallucinations Systems Review Comment: No overnight or acute issues. He appears to be at baseline per . His pain is controlled. He has no new complaints. - Patient Data Vitals - Most Recent: Last Vital Signs Temp 36.6 C 07/25/17 12:57 Pulse 70 07/25/17 13:07 Resp 17 07/25/17 12:57 BP 161/90 H 07/25/17 12:57 Pulse Ox 95 07/25/17 13:07 Weight - Most Recent: 120.202 kg I&O - Last 24 hours: Intake & Output 07/25/17 07/25/17 07/25/17 06:59 14:59 22:59 Intake Total 400 180 Balance 400 180 Lab Results - Last 24 hrs: Laboratory Results - last 24 hr 07/24/17 07/25/17 07/25/17 Range/Units 20:55 07:15 07:15 WBC 5.52 (4.23-9.07) K/mm3 RBC 4.90 (4.63-6.08) M/mm3 Hgb 16.1 (13.7-17.5) gm/L Hct 46.7 (40.1-51.0) % MCV 95.3 H (79.0-92.2) fl MCH 32.9 H (25.7-32.2) pg MCHC 34.5 (32.2-35.5) g/dl RDW Std Deviation 51.5 H (35.1-43.9) fL Plt Count 177 (163-337) K/mm3 MPV 8.8 L (9.4-12.3) fl Neut % (Auto) 60.3 (34.0-67.9) % Lymph % (Auto) 21.0 L (21.8-53.1) % [place] % (Auto) 9.6 (5.3-12.2) % Eos % (Auto) 8.5 H (0.8-7.0) Baso % (Auto) 0.2 (0.1-1.2) % Neut # (Auto) 3.33 (1.78-5.38) K/mm3 Lymph # (Auto) 1.16 L (1.32-3.57) K/mm3 Dixon # (Auto) 0.53 (0.30-0.82) K/mm3 Eos # (Auto) 0.47 (0.04-0.54) K/mm3 Baso # (Auto) 0.01 (0.01-0.08) K/mm3 Manual Slide Review Abnormal smear Sodium 133 L (136-145) mEq/L Potassium 4.4 (3.5-5.1) mEq/L Chloride 96 L (98-107) mEq/L Carbon Dioxide 26 (21-32) mEq/L Anion Gap 15.4 H (5-15) BUN 17 (7-18) mg/dL Creatinine 0.7 (0.7-1.3) mg/dL Est Cr Clr Drug Dosing 84.17 mL/min Estimated GFR (MDRD) > 60 (>60) mL/min BUN/Creatinine Ratio 24.3 H (14-18) Glucose 111 (83-115) mg/dL Calcium 8.8 (8.5-10.1) mg/dL Magnesium 1.9 (1.8-2.4) mg/dl Urine Opiates Screen Negative (NEGATIVE) Ur Buprenorphine Scrn Negative (NEGATIVE) Ur Oxycodone Screen Negative (NEGATIVE) Urine Methadone Screen Negative (NEGATIVE) Ur Propoxyphene Screen Negative (NEGATIVE) Ur Barbiturates Screen Negative (NEGATIVE) Ur Tricyclics Screen Negative (NEGATIVE) Ur Phencyclidine Scrn Negative (NEGATIVE) Ur Amphetamine Screen Negative (NEGATIVE) U Methamphetamines Scrn Negative (NEGATIVE) U Benzodiazepines Scrn Negative (NEGATIVE) U Cocaine Metab Screen Negative (NEGATIVE) U Marijuana (THC) Screen Negative (NEGATIVE) Med Orders - Current: Current Medications Albuterol (Proventil Hfa) 0 gm INH QID [facility] Last Admin: 07/25/17 13:04 Dose: 2 puff Albuterol/Ipratropium (Duoneb 3.0-0.5 Mg/3 Ml) 3 ml NEB Q4H PRN PRN Reason: Shortness Of Breath/wheezing Last Admin: 07/25/17 01:54 Dose: 3 ml Atenolol (Tenormin) 50 mg PO BID [facility] Last Admin: 07/25/17 09:24 Dose: 50 mg Bisacodyl (Dulcolax) 5 mg PO DAILY PRN PRN Reason: Constipation Docusate Sodium (Colace) 100 mg PO BID PRN PRN Reason: Constipation Furosemide (Lasix) 20 mg PO DAILY [facility] Last Admin: 07/25/17 09:23 Dose: 20 mg Promethazine HCl 12.5 mg/ (Sodium Chloride) 50.5 mls @ 100 mls/hr IV Q6H PRN PRN Reason: Nausea/Vomiting Ibuprofen (Motrin) 600 mg PO Q6H PRN PRN Reason: Pain (moderate 4-6) Last Admin: 07/25/17 02:05 Dose: 600 mg Lidocaine (Lidoderm 5%) 700 mg TOP Q24H [facility] Last Admin: 07/25/17 09:23 Dose: 700 mg Lorazepam (Ativan) 0.25 mg IV Q6H PRN PRN Reason: Anxiety Losartan Potassium (Cozaar) 100 mg PO DAILY [facility] Last Admin: 07/25/17 09:24 Dose: 100 mg Magnesium Oxide (Magnesium Oxide) 400 mg PO DAILY [facility] Last Admin: 07/25/17 09:23 Dose: 400 mg Miscellaneous Information (Remove Patch) 0 ea TRDERM Q24H [facility] Ondansetron HCl (Zofran) 4 mg IV Q6H PRN PRN Reason: Nausea/Vomiting Polyethylene Glycol (Miralax) 17 gm PO DAILY PRN PRN Reason: Constipation Rosuvastatin Calcium (Crestor) 10 mg PO DAILY [facility] Last Admin: 07/25/17 09:23 Dose: 10 mg Senna/Docusate Sodium (Senna Plus) 1 tab PO BID PRN PRN Reason: Constipation Tramadol HCl (Ultram) 50 mg PO TID PRN PRN Reason: Pain Discontinued Medications Hydromorphone HCl (Dilaudid) 0.25 mg IVPUSH Q2H PRN PRN Reason: Pain (severe 7-10) Lidocaine (Lidoderm 5%) 700 mg TOP Q24H [facility] Last Admin: 07/24/17 13:15 Dose: 700 mg Miscellaneous Information (Remove Patch) 1 ea TRDERM ONETIME ONE Stop: 07/25/17 01:01 Last Admin: 07/25/17 02:13 Dose: 1 ea Oxycodone HCl (Oxycodone) 5 mg PO Q4H PRN PRN Reason: Pain (moderate 4-6) Temazepam (Restoril) 7.5 mg PO BEDTIME PRN PRN Reason: Sleep - Exam General: Reports: Other (Morbidly Obese). Denies: Alert, Oriented, Cooperative , No Acute Distress HEENT: Denies: Pupils Equal, Pupils Reactive, EOMI, Mucous Membr. Moist/[place] Neck: Denies: Supple, Trachea Midline Lungs: Reports: Normal Respiratory Effort, Decreased Breath Sounds Cardiovascular: Reports: Regular Rate, Irregular Rhythm GI/Abdominal Exam: Normal Bowel Sounds, Soft, Non-Tender, No Organomegaly, No Distention, No Abnormal Bruit, No Mass, Other (Obese) (Male) Exam: Deferred Rectal (Males) Exam: Deferred Back Exam: Reports: Normal Inspection, Decreased Range of Motion Extremities: Normal Inspection, Normal Range of Motion, Non-Tender, No Pedal Edema, Normal Capillary Refill Skin: Reports: Warm, Dry, Intact Neurological: Reports: No New Focal Deficit Psy/Mental Status: Reports: Alert, Normal Affect, Normal Mood *Q Meaningful Use (DIS) - VTE *Q VTE Criteria *Q: - Stroke *Q Stroke Criteria *Q: - AMI *Q AMI Criteria *Q:
[2017-07-25 16:46] VITALS: BP 142/58
== END 2017-07-25 13:57 | disposition home or self-care (01) | DRG 948 ==
LOC: JD.ED 08:17 → UNDOADMIN 11:13 → JD.MS 11:13
PROVIDERS: ADMIT Internal Medicine; ATTEND Internal Medicine
DX: R41.0 Disorientation, unspecified (principal); R41.82 Altered mental status, unspecified; E78.00 Pure hypercholesterolemia, unspecified; G89.29 Other chronic pain; I48.91 Unspecified atrial fibrillation; H91.90 Unspecified hearing loss, unspecified ear; M54.9 Dorsalgia, unspecified; E78.5 Hyperlipidemia, unspecified; I10 Essential (primary) hypertension; Z87.891 Personal history of nicotine dependence; N40.0 Benign prostatic hyperplasia without lower urinary tract symptoms; E03.9 Hypothyroidism, unspecified; E66.9 Obesity, unspecified; Z68.39 Body mass index [BMI] 39.0-39.9, adult; Z66 Do not resuscitate; J45.909 Unspecified asthma, uncomplicated; F41.9 Anxiety disorder, unspecified; R41.3 Other amnesia; M54.5 Low back pain; Z88.6 Allergy status to analgesic agent; Z79.899 Other long term (current) drug therapy
CPT/HCPCS: 36415; 70450; 70450-26; 71010; 71010-26; 80048; 80053; 80306; 81001; 82962; 83735; 84443; 84484; 85025; 85610; 85730; 93005; 93010; 94640; 94664; 94761; 96125-GN; 97161-GP; 97165-GO; 99284-25; 99285-25; A9270-GY

== ENCOUNTER 2020-06-22 11:48 | Emergency (ER) | payer MEDICARE, BC ==
[2020-06-22 12:03] VITALS: BP 179/94; PULSE 58
[2020-06-22] MEDS ORDERED: Sodium Chloride 0.9% 10 ML Syringe FLUSH PRN (12:50)
--- NOTE | 2020-06-22 12:55 | EDM.PDOC ---
ED HPI GENERAL MEDICAL PROBLEM - General Chief Complaint: General Stated Complaint: [facility] Time Seen by Provider: 06/22/20 12:21 Source of Information: Reports: Patient, RN Notes Reviewed History Limitations: Reports: No Limitations - History of Present Illness INITIAL COMMENTS - FREE TEXT/NARRATIVE: Patient is an 84-year-old male who was brought into the ER by [facility] for the evaluation of his weakness. The patient notes he developed weakness, 3 or 4 days ago, and was also having some lower back pain associated with this. He was evaluated in the clinic by Dr. Aquino for his back pain had some x- rays, and was started on Zanaflex 2 mg twice daily, along with tramadol 50 mg every 6 hours as needed. Patient notes for the past couple days, he has been having increased weakness getting out of bed, where he is slipping down from his bed onto the ground. He notes that his back pain is worsened after this. He notes that he is using a walker for ambulating purposes, but he just feels like his legs are back are giving out on him. He has not had any fevers or chills, cough or shortness of breath, nausea or vomiting or diarrhea. He has a history of atrial fibrillation and his heart rate is in the 45-50 is, and he has a regularly irregular heart rate as noted on the surveillance monitor. He does take atenolol 50 mg twice daily for this. Patient also has a history of a compression fracture from July 2016. - Related Data Allergies Allergy/AdvReac Type Severity Reaction Status Date / Time oxycodone [From Percocet] AdvReac Confusion Verified 06/22/20 12:03 Home Meds: Home Meds Rosuvastatin Calcium [Crestor] 20 mg PO DAILY 06/22/16 [History] atenoloL [Atenolol] 50 mg PO BID 06/22/16 [History] Cinnamon Bark [Cinnamon] 1,000 mg PO DAILY 07/20/17 [History] Furosemide 20 mg PO DAILY #30 tablet 07/20/17 [Rx] Albuterol Sulfate [Proair Respiclick] 2 puff INH QID PRN 07/24/17 [History] traMADol [Ultram] 50 mg PO TID PRN 07/24/17 [History] Apixaban [Eliquis] 2.5 mg PO BID 06/22/20 [History] Irbesartan [Avapro] 300 mg PO DAILY 06/22/20 [History] Magnesium-Zinc 1 tab PO DAILY 06/22/20 [History] Menthol [Biofreeze] 1 dose TOP ASDIRECTED 06/22/20 [History] PARoxetine [Paxil] 20 mg PO DAILY 06/22/20 [History] tiZANidine [Zanaflex] 2 mg PO BID 06/22/20 [History] Past Medical History HEENT History: Reports: Impaired Vision Cardiovascular History: Reports: Afib, High Cholesterol, Hypertension Respiratory History: Reports: Asthma Other Respiratory History: takes xopenex inhalers very frequently Musculoskeletal History: Reports: Back Pain, Chronic, Fracture, Osteoporosis Psychiatric History: Reports: Anxiety Endocrine/Metabolic History: Reports: Obesity/BMI 30+ - Infectious Disease History Infectious Disease History: Reports: Chicken Pox, Measles, Mumps - Past Surgical History Musculoskeletal Surgical History: Reports: Other (See Below) Other Musculoskeletal Surgeries/Procedures:: Compression fx from 2015 Social & Family History - Family History Family Medical History: No Pertinent Family History - Tobacco Use Tobacco Use Status *Q: Former Tobacco User Used Tobacco, but Quit: Yes Month/Year Tobacco Last Used: "many years ago" - Caffeine Use Caffeine Use: Reports: Coffee Other Caffeine Use: decaf coffee. states "lives on diet dew" - Recreational Drug Use Recreational Drug Use: No ED ROS GENERAL - Review of Systems Review Of Systems: Comprehensive ROS is negative, except as noted in HPI. ED EXAM, GENERAL - Physical Exam Exam: See Below Exam Limited By: No Limitations General Appearance: Alert, WD/WN, No Apparent Distress Respiratory/Chest: No Respiratory Distress, Lungs Clear, Normal Breath Sounds, No Accessory Muscle Use, Chest Non-Tender Cardiovascular: Normal Peripheral Pulses, Regular Rate, Rhythm, No Edema, No Murmur Peripheral Pulses: 2+: Radial (L), Radial (R), Dorsalis Pedis (L), Dorsalis Pedis (R) Extremities: Normal Inspection, Normal Capillary Refill Neurological: Alert, Oriented, Normal Cognition, No Motor/Sensory Deficits Psychiatric: Normal Affect, Normal Mood Skin Exam: Warm, Dry, Intact, Normal Color, No Rash #1 Interpretation EKG Date: 06/22/20 Time: 13:04 Rhythm: A-Fib Rate (Beats/Min): 48 [place]: Normal P-Wave: Present QRS: Normal ST-T: Normal QT: Normal EKG Interpretation Comments: No obvious ischemia or acute ST changes noted, reviewed by myself and Dr. Arriola. Course - Vital Signs Last Recorded V/S: Last Vital Signs Temp 97.2 F 06/22/20 11:58 Pulse 58 L 06/22/20 11:58 Resp BP 179/94 H 06/22/20 11:58 Pulse Ox 96 06/22/20 11:58 - Orders/Labs/Meds Orders: Active Orders 24 hr Category Date Time Status EKG Documentation Completion [RC] STAT Care 06/22/20 12:49 Active Peripheral IV Care [RC] . DIRECTED Care 06/22/20 12:50 Active Chest 1V Frontal [CR] Stat Exams 06/22/20 12:49 Taken Sodium Chloride 0.9% [Normal Saline] 1,000 ml Med 06/22/20 14:33 Active IV ONETIME Sodium Chloride 0.9% [Saline Flush] Med 06/22/20 12:50 Active 10 ml FLUSH ASDIRECTED PRN Peripheral IV Insertion Adult [OM.PC] Routine Oth 06/22/20 12:50 Ordered Medication Orders Sodium Chloride (Normal Saline) 1,000 mls @ 500 mls/hr IV ONETIME ONE Stop: 06/22/20 16:32 Last Admin: 06/22/20 14:41 Dose: 500 mls/hr Documented by: JADA Sodium Chloride (Saline Flush) 10 ml FLUSH ASDIRECTED PRN PRN Reason: Keep Vein Open Last Admin: 06/22/20 14:06 Dose: 10 ml Documented by: MATILDA Labs: Laboratory Tests 06/22/20 06/22/20 06/22/20 Range/Units 13:00 13:16 13:16 WBC 5.52 (4.23-9.07) K/mm3 RBC 4.03 L (4.63-6.08) M/mm3 Hgb 13.5 L D (13.7-17.5) gm/dl Hct 39.2 L (40.1-51.0) % MCV 97.3 H (79.0-92.2) fl MCH 33.5 H (25.7-32.2) pg MCHC 34.4 (32.2-35.5) g/dl RDW Std Deviation 49.6 H (35.1-43.9) fL Plt Count 266 D (163-337) K/mm3 MPV 8.6 L (9.4-12.3) fl Neutrophils % (Manual) 65 H (40-60) % Band Neutrophils % 0 (0-10) % Lymphocytes % (Manual) 22 (20-40) % Atypical Lymphs % 0 % Monocytes % (Manual) 13 H (2-10) % Eosinophils % (Manual) 0 L (0.8-7.0) % Basophils % (Manual) 0 L (0.2-1.2) Platelet Estimate Adequate RBC Morph Comment Normal Sodium 123 L D (136-145) mEq/L Potassium 3.6 (3.5-5.1) mEq/L Chloride 88 L (98-107) mEq/L Carbon Dioxide 29 (21-32) mEq/L Anion Gap 9.6 (5-15) BUN 14 (7-18) mg/dL Creatinine 0.7 (0.7-1.3) mg/dL Est Cr Clr Drug Dosing 81.36 mL/min Estimated GFR (MDRD) > 60 (>60) mL/min BUN/Creatinine Ratio 20.0 H (14-18) Glucose 128 H (83-115) mg/dL Calcium 8.5 (8.5-10.1) mg/dL Magnesium 2.0 (1.8-2.4) mg/dl Total Bilirubin 0.7 (0.2-1.0) mg/dL AST 24 (15-37) U/L ALT 21 (16-63) U/L Alkaline Phosphatase 56 (46-116) U/L Troponin I 0.028 (0.00-0.056) ng/mL NT-Pro-B Natriuret Pep (0-450) pg/mL Total Protein 6.7 (6.4-8.2) g/dl Albumin 3.2 L (3.4-5.0) g/dl Globulin 3.5 gm/dL Albumin/Globulin Ratio 0.9 L (1-2) Urine Color Yellow (Yellow) Urine Appearance Clear (Clear) Urine pH 7.0 (5.0-8.0) Ur Specific [place] 1.020 (1.005-1.030) Urine Protein 1+ H (Negative) Urine Glucose (UA) Negative (Negative) Urine Ketones Negative (Negative) Urine Occult Blood Negative (Negative) Urine Nitrite Negative (Negative) Urine Bilirubin Negative (Negative) Urine Urobilinogen 1.0 (0.2-1.0) Ur Leukocyte Esterase Negative (Negative) Urine RBC 0-5 (0-5) /hpf Urine WBC 0-5 (0-5) /hpf Ur Squamous Epith Cells 0-5 (0-5) /hpf Amorphous Sediment Few H (NOT SEEN) /hpf Urine Bacteria Few (FEW) /hpf Urine Mucus Not seen (FEW) /hpf SARS-CoV-2 RNA (JEANINE) (NEGATIVE) 06/22/20 06/22/20 Range/Units 13:16 14:44 WBC (4.23-9.07) K/mm3 RBC (4.63-6.08) M/mm3 Hgb (13.7-17.5) gm/dl Hct (40.1-51.0) % MCV (79.0-92.2) fl MCH (25.7-32.2) pg MCHC (32.2-35.5) g/dl RDW Std Deviation (35.1-43.9) fL Plt Count (163-337) K/mm3 MPV (9.4-12.3) fl Neutrophils % (Manual) (40-60) % Band Neutrophils % (0-10) % Lymphocytes % (Manual) (20-40) % Atypical Lymphs % % Monocytes % (Manual) (2-10) % Eosinophils % (Manual) (0.8-7.0) % Basophils % (Manual) (0.2-1.2) Platelet Estimate RBC Morph Comment Sodium (136-145) mEq/L Potassium (3.5-5.1) mEq/L Chloride (98-107) mEq/L Carbon Dioxide (21-32) mEq/L Anion Gap (5-15) BUN (7-18) mg/dL Creatinine (0.7-1.3) mg/dL Est Cr Clr Drug Dosing mL/min Estimated GFR (MDRD) (>60) mL/min BUN/Creatinine Ratio (14-18) Glucose (83-115) mg/dL Calcium (8.5-10.1) mg/dL Magnesium (1.8-2.4) mg/dl Total Bilirubin (0.2-1.0) mg/dL AST (15-37) U/L ALT (16-63) U/L Alkaline Phosphatase (46-116) U/L Troponin I (0.00-0.056) ng/mL NT-Pro-B Natriuret Pep 2881 H (0-450) pg/mL Total Protein (6.4-8.2) g/dl Albumin (3.4-5.0) g/dl Globulin gm/dL Albumin/Globulin Ratio (1-2) Urine Color (Yellow) Urine Appearance (Clear) Urine pH (5.0-8.0) Ur Specific [place] (1.005-1.030) Urine Protein (Negative) Urine Glucose (UA) (Negative) Urine Ketones (Negative) Urine Occult Blood (Negative) Urine Nitrite (Negative) Urine Bilirubin (Negative) Urine Urobilinogen (0.2-1.0) Ur Leukocyte Esterase (Negative) Urine RBC (0-5) /hpf Urine WBC (0-5) /hpf Ur Squamous Epith Cells (0-5) /hpf Amorphous Sediment (NOT SEEN) /hpf Urine Bacteria (FEW) /hpf Urine Mucus (FEW) /hpf SARS-CoV-2 RNA (JEANINE) Negative (NEGATIVE) Meds: Medications Generic Name Dose Route Start Last Admin Trade Name Freq PRN Reason Stop Dose Admin Sodium Chloride 1,000 mls @ 500 mls/hr 06/22/20 14:33 06/22/20 14:41 Normal Saline IV 06/22/20 16:32 500 mls/hr ONETIME ONE Administration Sodium Chloride 10 ml 06/22/20 12:50 06/22/20 14:06 Saline Flush FLUSH 10 ml ASDIRECTED PRN Administration Keep Vein Open Discontinued Medications Generic Name Dose Route Start Last Admin Trade Name Freq PRN Reason Stop Dose Admin Acetaminophen 650 mg 06/22/20 15:19 06/22/20 15:28 Tylenol PO 06/22/20 15:20 650 mg NOW ONE Administration Tramadol HCl 50 mg 06/22/20 15:04 Ultram PO 06/22/20 15:05 ONETIME ONE - Re-Assessments/Exams Free Text/Narrative Re-Assessment/Exam: 06/22/20 13:05 Patient presents to the ED for the evaluation of his generalized weakness. On exam, he has pretty good strength in his bilateral lower extremities. I do believe that the combination of his medications, tramadol and Zanaflex may be attributing to his weakness, along with generalized deconditioning, as he has no discernible other complaints at this time. We will get some labs to rule things out, but again I do highly suspect a combination of medications and generalized deconditioning as the source of his problems. 06/22/20 14:55 Patient's labs have resulted, CBC is unremarkable, metabolic panel is impressive for hyponatremia at 123, his troponin is 0.028, but he is in atrial fibrillation, so this very well could be due to that. He is not complaining of any chest pain at this time. His BNP is also elevated at 2881, which could cause some of the troponin bump as well. His heart rate has been steadily in the low 40s to upper 50s in the ER. I called his primary care provider, Dr. Aquino, and he would prefer the patient be admitted for dose adjustment of the atenolol. And with the low sodium level, I do agree that the patient would need hospital management for dose adjustment and management of the low sodium, and elevated BNP. I did call [facility] and talked with Dr. Awad and she does ultimately accept for transfer. COVID-19 test is pending. 06/22/20 15:58 COVID-19 test has come back and is negative. After the start of the fluids, the patient's blood pressure has been mildly elevated, but he is not complaining of any chest pain, headaches, blurred vision or double vision. He will not be given any sort of medications for this as he is asymptomatic and this is likely d/t the fluids. Departure - Departure Time of Disposition: 15:05 Disposition: DC/Tfer to Acute Hospital 02 Condition: Good Clinical Impression: Hyponatremia, Elevated brain natriuretic peptide (BNP) level - Discharge Information Referrals: PCP,None [Primary Care Provider] - Forms: ED Department Discharge Sepsis Event Note (ED) - Evaluation Sepsis Screening Result: No Definite Risk - Focused Exam Vital Signs: Vital Signs Temp Pulse BP Pulse Ox 06/22/20 11:58 97.2 F 58 L 179/94 H 96 - My Orders Last 24 Hours: My Active Orders 06/22/20 12:49 EKG Documentation Completion [RC] STAT Chest 1V Frontal [CR] Stat 06/22/20 12:50 Peripheral IV Care [RC] . DIRECTED Sodium Chloride 0.9% [Saline Flush] 10 ml FLUSH ASDIRECTED PRN Peripheral IV Insertion Adult [OM.PC] Routine 06/22/20 14:33 Sodium Chloride 0.9% [Normal Saline] 1,000 ml IV ONETIME - Assessment/Plan Last 24 Hours: My Active Orders 06/22/20 12:49 EKG Documentation Completion [RC] STAT Chest 1V Frontal [CR] Stat 06/22/20 12:50 Peripheral IV Care [RC] . DIRECTED Sodium Chloride 0.9% [Saline Flush] 10 ml FLUSH ASDIRECTED PRN Peripheral IV Insertion Adult [OM.PC] Routine 06/22/20 14:33 Sodium Chloride 0.9% [Normal Saline] 1,000 ml IV ONETIME
[2020-06-22] MEDS ORDERED: Sodium Chloride 0.9% 1,000 ML IV ONE (14:33)
[2020-06-22] MEDS ORDERED: traMADol 50 MG Tab PO ONE (15:04)
[2020-06-22] MEDS ORDERED: Acetaminophen 325 MG Tab PO ONE (15:19)
--- NOTE | 2020-06-23 13:33 | CR ---
PROCEDURE INFORMATION: Exam: XR Chest, 1 View Exam date and time: 06/22/2020 1:05 PM Age: 84 years old Clinical indication: Other: Generally weak TECHNIQUE: Imaging protocol: XR of the chest Views: 1 view. COMPARISON: No relevant prior studies available. FINDINGS: Lungs: Atelectatic and/or early infiltrative changes within the left lung base. The lungs are hyperinflated, consistent with underlying small airways disease. Pleural space: Unremarkable. No pleural effusion. No pneumothorax. Heart/Mediastinum: The heart demonstrates mild diffuse enlargement. The heart demonstrates mild diffuse enlargement. Bones/joints: Unremarkable. IMPRESSION: 1. Atelectatic and/or early infiltrative changes within the left lung base. 2. The lungs are hyperinflated, consistent with underlying small airways disease. Thank you for allowing us to participate in the care of your patient. Dictated and Authenticated by: Gabo Linn DO 06/22/2020 2:57 PM Central Time ([place] & [place]) [email or web address]
== END 2020-06-22 16:20 ==
LOC: JD.ED 11:48
DX: E87.1 Hypo-osmolality and hyponatremia (principal); R79.1 Abnormal coagulation profile; I10 Essential (primary) hypertension; E78.00 Pure hypercholesterolemia, unspecified; I48.91 Unspecified atrial fibrillation; J45.909 Unspecified asthma, uncomplicated; F41.9 Anxiety disorder, unspecified; E66.9 Obesity, unspecified; Z68.25 Body mass index [BMI] 25.0-25.9, adult; Z87.891 Personal history of nicotine dependence; Z88.5 Allergy status to narcotic agent; Z79.899 Other long term (current) drug therapy; Z79.01 Long term (current) use of anticoagulants; Z20.828 Contact with and (suspected) exposure to other viral communicable diseases
CPT/HCPCS: 36415; 71045; 80053; 81001; 83735; 83880; 84484; 85007; 85027; 93005; 99285; A9270; J7030; U0002; 93010; 99284

== ENCOUNTER 2020-07-24 03:53 | Emergency (ER) | payer MEDICARE, BC ==
[2020-07-24 04:01] VITALS: BP 166/88; PULSE 90
[2020-07-24] MEDS ORDERED: HYDROmorphone 1 MG/ML Syringe IVPUSH ONE (04:31)
--- NOTE | 2020-07-24 04:44 | EDM.PDOC ---
ED HPI GENERAL MEDICAL PROBLEM - General Chief Complaint: Back Pain or Injury Stated Complaint: [facility] Time Seen by Provider: 07/24/20 04:04 Source of Information: Reports: Patient, Family () History Limitations: Reports: Altered Mental Status (Patient somewhat confused) - History of Present Illness INITIAL COMMENTS - FREE TEXT/NARRATIVE: Mr. De La Vega is an 85-year-old gentleman who is now brought to the ED by EMS with a complaint of worsening lower back pain. The patient has chronic lower back pain due to osteoporosis and a vertebral compression fracture about 15 years ago, status post a vertebroplasty. Medical records indicate that the patient was seen in this ED on 06/22/2020 for generalized weakness and low back pain. His work-up found him to be hyponatremic with an elevated BNP. He was transferred to [facility], where, according to his (who I spoke to in the waiting room), he was diagnosed with pancreatic cancer. The patient a nd his decided not to pursue any treatment - no surgery, chemotherapy, or radiation therapy - due to his age. His only treatment is pain medication, which is being managed by his PCP. Review of the [facility] finds that the patient was initially prescribed tramadol in late June, then switched to oral morphine and a 12 mcg/h fentanyl patch on 07/07/2020. The morphine dosage was increased on 07/11/2020, then the fentanyl patch increased to 25 mcg/h on 07/17/2020. The patient's tells me that the patient gets "loopy" with morphine, which may explain his difficulty in detailing his history here in the ED. The patient states that he has had worsening lower back pain on and off for the past 2 to 3 weeks, however, his tells me that it has only been over the past few days. For reasons unclear, they have not contacted his PCP. The patient was given 50 mcg of IV fentanyl en route to the ED, which the patient states improved his pain considerably. He is requesting that I modify his pain medications to give him long lasting pain relief. Here in the ED, the patient's initial BP is found to be modestly elevated at 166/88, otherwise, he is hemodynamically stable, afebrile, saturating 95% on room air. Other than his chronic lower back pain, the patient denies having a recent fever, chills, sore throat, ear pain, nasal or sinus congestion, cough, dyspnea, chest pain, palpitations, nausea, vomiting, constipation, diarrhea, abdominal pain, urinary symptoms, recent weight gain or weight loss, recent bloody bowel movements or black bowel movements, recent joint aches, headaches, or rashes. The patient's PCP is Dr. Eliezer Shook. Back Pain Score (Numeric/FACES): 10 - Related Data Allergies Allergy/AdvReac Type Severity Reaction Status Date / Time oxycodone [From Percocet] AdvReac Confusion Verified 07/24/20 04:02 Home Meds: Home Meds Rosuvastatin Calcium [Crestor] 20 mg PO DAILY 06/22/16 [History] atenoloL [Atenolol] 50 mg PO BID 06/22/16 [History] Cinnamon Bark [Cinnamon] 1,000 mg PO DAILY 07/20/17 [History] Furosemide 20 mg PO DAILY #30 tablet 07/20/17 [Rx] Albuterol Sulfate [Proair Respiclick] 2 puff INH QID PRN 07/24/17 [History] traMADol [Ultram] 50 mg PO TID PRN 07/24/17 [History] Apixaban [Eliquis] 2.5 mg PO BID 06/22/20 [History] Irbesartan [Avapro] 300 mg PO DAILY 06/22/20 [History] Magnesium-Zinc 1 tab PO DAILY 06/22/20 [History] Menthol [Biofreeze] 1 dose TOP ASDIRECTED 06/22/20 [History] PARoxetine [Paxil] 20 mg PO DAILY 06/22/20 [History] tiZANidine [Zanaflex] 2 mg PO BID 06/22/20 [History] Past Medical History HEENT History: Reports: Impaired Vision Cardiovascular History: Reports: Afib, High Cholesterol, Hypertension Respiratory History: Reports: Asthma Musculoskeletal History: Reports: Fracture (vertebral compression), Osteoporosis Psychiatric History: Reports: Anxiety Endocrine/Metabolic History: Reports: Obesity/BMI 30+ Oncologic (Cancer) History: Reports: Pancreatic (dx'd Jun 2020 - no treatment) - Infectious Disease History Infectious Disease History: Reports: Chicken Pox, Measles, Mumps - Past Surgical History Neurological Surgical History: Reports: Vertebroplasty Social & Family History - Tobacco Use Tobacco Use Status *Q: Former Tobacco User Month/Year Tobacco Last Used: Quit 1969 - Caffeine Use Caffeine Use: Reports: Coffee Other Caffeine Use: decaf coffee. states "lives on diet dew" - Living Situation & Occupation Living situation: Reports: , Assisted Living ([facility]) Occupation: Retired ED ROS GENERAL - Review of Systems Review Of Systems: Comprehensive ROS is negative, except as noted in HPI. ED EXAM,LOWER BACK PAIN/INJURY - Physical Exam Exam: See Below Exam Limited By: No Limitations General Appearance: Alert, WD/WN, No Apparent Distress Eye Exam: Bilateral Eye: EOMI, Normal Inspection Ears: Normal External Exam, Hearing Grossly Normal Nose: Normal Inspection Throat/Mouth: Normal Inspection, Normal Lips, Normal Voice, No Airway Compromise Head: Atraumatic, Normocephalic Neck: Normal Inspection, Full Range of Motion Respiratory/Chest: No Respiratory Distress, Lungs Clear, Normal Breath Sounds, No Accessory Muscle Use Cardiovascular: Normal Peripheral Pulses, No Gallop, No JVD, No Murmur, No Rub, Irregularly Irregular (regular rate) GI/Abdominal: Normal Bowel Sounds, Soft, Non-Tender (including the upper abdomen), No Organomegaly, No Distention, No Abnormal Bruit, No Mass Back Exam: Normal Inspection Extremities: Normal Inspection, Normal Range of Motion, Normal Capillary Refill Neurological: Alert, No Motor/Sensory Deficits, Other (Somewhat confused) Psychiatric: Normal Affect Skin Exam: Warm, Dry, Intact, Normal Color, No Rash Course - Vital Signs Last Recorded V/S: Last Vital Signs Temp 37.1 C 07/24/20 03:56 Pulse 90 07/24/20 03:56 Resp 16 07/24/20 03:56 BP 166/88 H 07/24/20 03:56 Pulse Ox 95 07/24/20 03:56 - Orders/Labs/Meds Meds: Medications Discontinued Medications Generic Name Dose Route Start Last Admin Trade Name Jordanq PRN Reason Stop Dose Admin Hydromorphone HCl 1 mg 07/24/20 04:31 07/24/20 04:39 Dilaudid IVPUSH 07/24/20 04:32 1 mg ONETIME ONE Administration - Re-Assessments/Exams Free Text/Narrative Re-Assessment/Exam: 07/24/20 04:35 The patient will be given 1 mg of Dilaudid IVP, then discharged home with his . They are to contact Dr. Shook's office later this morning to discuss modification of the patient's pain medication regimen. Departure - Departure Time of Disposition: 04:36 Disposition: Home, Self-Care 01 Condition: Good Clinical Impression: Acute exacerbation of chronic low back pain - Discharge Information *PRESCRIPTION DRUG MONITORING PROGRAM REVIEWED*: Yes *COPY OF PRESCRIPTION DRUG MONITORING REPORT IN PATIENT DENNY: No Referrals: Eliezer Shook MD [Physician] - Forms: ED Department Discharge Additional Instructions: You were seen in the emergency room for several days of worsening chronic lower back pain associated with a diagnosis of pancreatic cancer in June. You were given an injection of an opioid pain reliever in the ER, however, as explained, the emergency department is not in a position to modify your chronic pain medicines. You will need to follow-up with your PCP, Dr. Eliezer Shook, in order to have that done. If any other problems, please do not hesitate to return to the ER. Sepsis Event Note (ED) - Evaluation Sepsis Screening Result: No Definite Risk - Focused Exam Vital Signs: Vital Signs Temp Pulse Resp BP Pulse Ox 07/24/20 03:56 37.1 C 90 16 166/88 H 95
== END 2020-07-24 05:11 | disposition home or self-care (01) ==
LOC: JD.ED 03:53
DX: M54.5 Low back pain (principal); G89.29 Other chronic pain; I48.91 Unspecified atrial fibrillation; E78.00 Pure hypercholesterolemia, unspecified; I10 Essential (primary) hypertension; J45.909 Unspecified asthma, uncomplicated; F41.9 Anxiety disorder, unspecified; E66.9 Obesity, unspecified; Z87.891 Personal history of nicotine dependence; Z79.01 Long term (current) use of anticoagulants; Z79.899 Other long term (current) drug therapy; Z88.5 Allergy status to narcotic agent
CPT/HCPCS: 96374; 99283; 99284-25; J1170